=== PATIENT | female | born 1950 | race Caucasian/White ===

== ENCOUNTER 2017-03-21 11:16 | Emergency (ER) | payer MEDICARE ==
[~2017-03-21] VITALS: Ht 157.5 cm; Wt 107.4 kg
[2017-03-21] MEDS ORDERED: OMNIPAQUE 350 MG/ML, 150 ML BOTTLE ONE (12:50)
[2017-03-21] MEDS ORDERED: BENZOCAINE 20% SPRAY 0.5ML ONE (13:31)
[2017-03-21 14:09] VITALS: BP 144/77
== END 2017-03-21 14:10 | disposition home or self-care (01) ==
LOC: ED 12:34
DX: T18.198A Other foreign object in esophagus causing other injury, initial encounter (principal); X58.XXXA Exposure to other specified factors, initial encounter; Y93.89 Activity, other specified; Y92.89 Other specified places as the place of occurrence of the external cause; Y99.9 Unspecified external cause status
CPT/HCPCS: 74220; 99284; Q9967

== ENCOUNTER 2019-08-08 19:26 | Emergency (ER) | payer MEDICARE ==
[~2019-08-08] VITALS: Ht 154.9 cm; Wt 107.9 kg
--- NOTE | 2019-08-08 20:15 | NUR ---
THIS IS A 68 YO FEMALE WHO PRESENTS TO THE ER C/O "A BIG BLACK DOT FLOATING ALL AROUND MY EYE" ON RIGHT EYE. PT DENIES FLASHES OF LIGHT OR PAIN. LUZ ELENA STEPHENSON AT BEDSIDE FOR EVAL. PT ALSO STATED TO MD SHE HAS HAD INTERMITTENT CHEST PAIN WHILE LAYING DOWN X "20 TO 30 YEARS" THAT RESOLVED WITH POSITION AND COLD WATER. PT CURRENTLY DENIES ANY PAIN TODAY AT ALL. PT AWARE WE ARE WAITING FOR LAB RESULTS. AT BEDSIDE. PT ON CONT BP, CARDIAC AND O2 MONITORS. CALL LIGHT WITHIN REACH.
[2019-08-08 20:17] LABS: BASOPHILS # (AUTO) 0.01 x10^3/uL (0-0.1); BASOPHILS % (AUTO) 0 % (0-1); EOSINOPHILS % (AUTO) 0 % (1-7); LYMPHOCYTES # (AUTO) 0.79 x10^3/uL (1-3.4); LYMPHOCYTES % (AUTO) 8 % (22-44); MD NO; MEAN CORPUSCULAR HEMOGLOBIN 31.3 pg (27.0-34.8); MEAN PLATELET VOLUME 7.3 fL (7.4-10.4); MONOCYTES # (AUTO) 0.11 x10^3/uL (0.2-0.8); MONOCYTES % (AUTO) 1 % (2-9); NEUTROPHILS # (AUTO) 9.28 x10^3/uL (1.8-6.8); NEUTROPHILS % (AUTO) 91 % (42-75); PLATELET COUNT 260 x10^3/uL (130-400); RED BLOOD COUNT 4.67 x10^6/uL (3.82-5.3); RED CELL DISTRIBUTION WIDTH 16.4 % (9.6-15.2)
[2019-08-08 20:29] LABS: ALBUMIN 3.5 g/dL (3.4-5.0); ANION GAP 12 mmol/L (5-15); CALCIUM 8.9 mg/dL (8.5-10.1); CHLORIDE 109 mmol/L (98-107); CREATININE 1.07 mg/dL (0.55-1.02)
[2019-08-08 20:33] LABS: TROPONIN I < 0.015 ng/mL (0.000-0.045)
[2019-08-08 21:13] VITALS: BP 136/70
--- NOTE | 2019-08-08 21:13 | NUR ---
REPORT FROM TY INFANTE. PT RESTING IN ROOM. VSS. NO NEEDS EXPRESSED. AWAITING VAs.
--- NOTE | 2019-08-08 21:17 | NUR ---
REPORT TO TY GUEVARA WHO ASSUMED CARE OF PT.
--- NOTE | 2019-08-08 21:21 | NUR ---
VAs COMPLETED. Addendum: 08/08/19 at 2121 by [email or web address] CHART UP FOR RECHECK.
[2019-08-08 21:37] LABS: HCT (SEDRATE) 44.4 % (34.6-47.8)
== END 2019-08-08 21:50 | disposition home or self-care (01) ==
LOC: ED 21:10
DX: R07.89 Other chest pain (principal); H53.451 Other localized visual field defect, right eye; M31.6 Other giant cell arteritis; K21.9 Gastro-esophageal reflux disease without esophagitis; Z85.038 Personal history of other malignant neoplasm of large intestine
CPT/HCPCS: 36415; 71045; 80048; 82040; 84484; 85025; 85651; 93005; 99284

== ENCOUNTER 2020-12-07 12:38 | Emergency (ER) | payer MEDICARE ==
[~2020-12-07] VITALS: Ht 154.9 cm; Wt 108.0 kg
--- NOTE | 2020-12-07 12:47 | NUR ---
ABRAHAM RN: THIS IS A 70 YEAR OLD FEMALE WHO WAS BIB AMBULANCE DUE TO [facility]. PT STATES SHE MISS A STEEP AND FELL. PT C.O OF RIGHT BREAST AND RIB PAIN, AND HAS MULTIPLE SKIN TEARS ON RIGHT ARM AND RIGHT LEG. PT RECEIVED 100MCG OF FENTANYL AND ZOFRAN 4MG IV IN ROUTE BY EMS. PT STATES PAIN IS AT A 8/10 AT THIS TIME.
[2020-12-07] MEDS ORDERED: PRED5TAB PO (12:52)
[2020-12-07] MEDS ORDERED: OMEP-110 PO (12:53)
[2020-12-07] MEDS ORDERED: MORPHINE SULFATE 4 MG/ML, 1ML ONE (13:08)
[2020-12-07] MEDS ORDERED: MORPHINE SULFATE 4 MG/ML, 1ML IVPush PRN (13:30)
[2020-12-07] MEDS ORDERED: OXYcodone/APAP 5/325MG TABLET ONE (14:23)
[2020-12-07] MEDS ORDERED: IBUPROFEN 200 MG TABLET ONE (14:23)
[2020-12-07] MEDS ORDERED: IBUPROFEN 200 MG TABLET PO ONE (14:30)
[2020-12-07] MEDS ORDERED: OXYcodone/APAP 5/325MG TABLET PO ONE (14:30)
[2020-12-07 15:36] VITALS: BP 134/68
--- NOTE | 2020-12-07 15:48 | NUR ---
PT REC'VD DISCHARGE INSTRUCTIONS AND EDUCATION. PT HAD NO FURTHER QUESTIONS. PT AMBULATED TO DISCHARGE AREA, STEADY GAIT.
[2020-12-12] MEDS ORDERED: HYDR-2214 PO ×2 (13:48)
== END 2020-12-07 15:53 | disposition home or self-care (01) ==
LOC: ED 15:20
DX: S22.31XA Fracture of one rib, right side, initial encounter for closed fracture (principal); M25.511 Pain in right shoulder; X58.XXXA Exposure to other specified factors, initial encounter; Y93.89 Activity, other specified; Y92.89 Other specified places as the place of occurrence of the external cause; Y99.8 Other external cause status
CPT/HCPCS: 71101; 73000; 96372; 99284; J2270

== ENCOUNTER 2020-12-09 00:46 | Inpatient (IN) | payer MEDICARE ==
[~2020-12-09] VITALS: Ht 154.9 cm; Wt 107.4 kg
[~2020-12-09 00:46] MED LIST: OMEP-110 PO; PRED5TAB PO
--- NOTE | 2020-12-09 00:59 | NUR ---
ASSUMED CARE OF PATIENT. PATIENT BIB [facility] FOR RIGHT RIB PAIN AFTER A GLF YESTERDAY. PT REPORTS IT HURTS WORSE TO NIGHT. VS STABLE. NO ACUTE DISTRESS NOTED. PT WAS GIVEN FENTANYL IN BY EMS. PT SEEN BY DR JIMENEZ. EKG DONE. CALL LIGHT IN PLACE. WILL CONTINUE TO MONITOR.
--- NOTE | 2020-12-09 01:15 | NUR ---
LAB IN ROOM
[2020-12-09 01:29] LABS: BASOPHILS % (AUTO) 1 % (0-1); EOSINOPHILS % (AUTO) 1 % (1-7); LYMPHOCYTES % (AUTO) 17 % (22-44); MEAN CORPUSCULAR HEMOGLOBIN 31.8 pg (27.0-34.8); MEAN CORPUSCULAR HGB CONC 33.1 g/dL (32.4-35.8); MEAN PLATELET VOLUME 7.6 fL (7.4-10.4); MONOCYTES % (AUTO) 6 % (2-9); NEUTROPHILS % (AUTO) 75 % (42-75); PLATELET COUNT 268 x10^3/uL (130-400); RED BLOOD COUNT 4.41 x10^6/uL (3.82-5.3); RED CELL DISTRIBUTION WIDTH 14.1 % (9.6-15.2)
[2020-12-09] MEDS ORDERED: ONDANSETRON 2MG/ML, 2ML IVPush ONE (01:30)
[2020-12-09] MEDS ORDERED: SODIUM CHLORIDE FLUSH 10ML SYR IVF ONE (01:30)
[2020-12-09] MEDS ORDERED: OMNIPAQUE 350 MG/ML, 100ML BOTTLE ONE (01:30)
[2020-12-09] MEDS ORDERED: ONDANSETRON 2MG/ML, 2ML ONE (01:30)
[2020-12-09] MEDS ORDERED: MORPHINE SULFATE 4 MG/ML, 1ML ONE ×2 (01:30→03:28)
[2020-12-09 01:32] LABS: MD NO
[2020-12-09] MEDS: MORPHINE SULFATE 4 MG/ML, 1ML IVPush PRN ×2 (01:34→03:33)
[2020-12-09] MEDS ORDERED: vit D (01:37)
[2020-12-09] MEDS ORDERED: FLUO20CA23 PO (01:37)
[2020-12-09 01:40] LABS: INTERNATIONAL NORMALIZED RATIO 0.96 (0.93-1.1); PROTHROMBIN TIME 10.3 Seconds (9.6-11.5)
[2020-12-09 01:41] LABS: ALANINE AMINOTRANSFERASE 38 U/L (12-78); ALBUMIN 3.3 g/dL (3.4-5.0); ANION GAP 4 mmol/L (5-15); CALCIUM 8.7 mg/dL (8.5-10.1); CHLORIDE 110 mmol/L (98-107)
[2020-12-09 01:43] LABS: ALKALINE PHOSPHATASE 72 U/L (45-117); BILIRUBIN,TOTAL 0.4 mg/dL (0.2-1.0); TOTAL PROTEIN 6.7 g/dL (6.4-8.2)
--- NOTE | 2020-12-09 01:47 | NUR ---
PT CHANGED INTO A GOWN AND BED LINENS CHANGED. PT REPORTS SHE IS INCONTINENT AT BASELINE. PT GIVEN A PUREWICK. VS STABLE. AT BEDSIDE. PT MEDICATED FOR PAIN. CALL LIGHT IN PLACE. WILL CONTINUE TO MONITOR.
--- NOTE | 2020-12-09 01:52 | NUR ---
REPORT GIVEN TO TY MENEZES. PT WENT TO CT.
--- NOTE | 2020-12-09 02:25 | NUR ---
PT RETURNED FROM CT, AT BEDSIDE. PT RESTING ON GURNEY STATES THE PAIN COMES IN WAVES. PT DENIES ANY ADDTIONAL NEEDS AT THIS TIME. VSS AND WILL CONT TO MONITOR.
--- NOTE | 2020-12-09 03:54 | NUR ---
REPORT FROM CLIF CRAWFORD
[2020-12-09] MEDS ORDERED: ONDANSETRON 2MG/ML, 2ML IVPush PRN (04:00)
[2020-12-09] MEDS ORDERED: BISACODYL 10 MG SUPP PR PRN (04:00)
[2020-12-09] MEDS ORDERED: ACETAMINOPHEN 325 MG TABLET PO PRN (04:00)
[2020-12-09] MEDS ORDERED: DOCUSATE 100 MG CAPSULE PO PRN (04:00)
[2020-12-09] MEDS ORDERED: morphine SULFATE 10 MG/ML, 1ML IVPush PRN (04:00)
[2020-12-09] MEDS ORDERED: POLYETHYLENE GLYCOL 17 GM PACKET PO PRN (04:00)
[2020-12-09] MEDS ORDERED: hydrALAzine 20 MG/ML, 1ML IVPush PRN (04:00)
[2020-12-09] MEDS ORDERED: PROMETHAZINE 25 MG/ML, 1ML IM PRN (04:00)
--- NOTE | 2020-12-09 04:02 | NUR ---
Pt to be admitted to [facility], room 524. Report called to ACCOUNT DEVELOPMENT MANAGER.
[2020-12-09 04:41] LABS: FREE T4 (FREE THYROXINE) 1.01 ng/dL (0.76-1.46)
[2020-12-09 04:48] VITALS: BP 152/82
[2020-12-09] MEDS: PREDNISONE MC SCH ×3 (05:00→21:00)
[2020-12-09] MEDS: HEPARIN 5,000 UNITS/ML, 1ML SQ SCH ×3 (05:45→20:22)
[2020-12-09] MEDS: OXYcodone IR 5MG TABLET PO PRN ×3 (05:47→23:18)
[2020-12-09] MEDS ORDERED: PRED5TAB PO (05:49)
[2020-12-09 08:57] VITALS: BP 128/76
[2020-12-09] MEDS: OMEPRAZOLE 20 MG CAPSULE.DR PO SCH (09:17)
[2020-12-09] MEDS: CHOLECALCIFEROL 1,000 UNIT TABLET PO SCH (09:17)
[2020-12-09] MEDS: FLUOXETINE HCL 20 MG CAPSULE PO SCH (09:17)
[2020-12-09] MEDS: KETOROLAC 30 MG/1 ML IVPush SCH ×3 (09:17→20:22)
[2020-12-09] MEDS: LIDODERM 5% PATCH TD SCH (11:47)
[2020-12-09] MEDS: ONDANSETRON ODT 4 MG PO PRN (11:50)
[2020-12-09 12:10] VITALS: BP 141/81
[2020-12-09 20:29] VITALS: BP 157/78
[2020-12-10 00:49] VITALS: BP 120/80
[2020-12-10] MEDS: KETOROLAC 30 MG/1 ML IVPush SCH ×4 (02:24→20:01)
[2020-12-10 05:33] LABS: BASOPHILS % (AUTO) 1 % (0-1); EOSINOPHILS % (AUTO) 2 % (1-7); LYMPHOCYTES % (AUTO) 30 % (22-44); MEAN CORPUSCULAR HEMOGLOBIN 32.3 pg (27.0-34.8); MEAN CORPUSCULAR HGB CONC 33.5 g/dL (32.4-35.8); MONOCYTES % (AUTO) 8 % (2-9); NEUTROPHILS % (AUTO) 58 % (42-75); PLATELET COUNT 238 x10^3/uL (130-400); RED CELL DISTRIBUTION WIDTH 14.2 % (9.6-15.2)
[2020-12-10 05:41] LABS: ANION GAP 4 mmol/L (5-15); CALCIUM 8.5 mg/dL (8.5-10.1); CHLORIDE 107 mmol/L (98-107)
[2020-12-10 05:42] LABS: MD NO
[2020-12-10 05:47] LABS: CHOL/HDL RATIO 2.8; CHOLESTEROL, TOTAL 239 mg/dL (140-239); CREATININE 0.94 mg/dL (0.55-1.02); HDL CHOL % 36 % (28-40); HDL CHOLESTEROL (DIRECT) 86 mg/dL (40-60); LDL CHOLESTEROL,CALCULATED 124 mg/dL (54-169); LDL/HDL RATIO 1.4 (0.5-3.0); TRIGLYCERIDES 143 mg/dL (50-200); VLDL CHOLESTEROL 29 mg/dL (0-25)
[2020-12-10] MEDS: HEPARIN 5,000 UNITS/ML, 1ML SQ SCH ×3 (06:11→20:01)
[2020-12-10] MEDS: OXYcodone IR 5MG TABLET PO PRN (06:12)
[2020-12-10 07:17] VITALS: BP 127/71
[2020-12-10] MEDS: FLUOXETINE HCL 20 MG CAPSULE PO SCH (09:38)
[2020-12-10] MEDS: CHOLECALCIFEROL 1,000 UNIT TABLET PO SCH (09:38)
[2020-12-10] MEDS: OMEPRAZOLE 20 MG CAPSULE.DR PO SCH (09:38)
[2020-12-10] MEDS: HYDROcodone/APAP 5/325 TABLET PO PRN ×2 (12:52→18:28)
[2020-12-10] MEDS: LIDODERM 5% PATCH TD SCH (12:53)
[2020-12-10 13:34] VITALS: BP 115/74
[2020-12-10 20:01] VITALS: BP 148/81
[2020-12-11] MEDS: HYDROcodone/APAP 5/325 TABLET PO PRN ×5 (00:44→23:55)
[2020-12-11 00:48] VITALS: BP 149/84
[2020-12-11] MEDS: KETOROLAC 30 MG/1 ML IVPush SCH ×4 (01:36→21:29)
[2020-12-11] MEDS: HEPARIN 5,000 UNITS/ML, 1ML SQ SCH ×3 (03:06→19:29)
[2020-12-11 08:34] VITALS: BP 150/85
[2020-12-11] MEDS: OMEPRAZOLE 20 MG CAPSULE.DR PO SCH (08:59)
[2020-12-11] MEDS: ONDANSETRON ODT 4 MG PO PRN (08:59)
[2020-12-11] MEDS: CHOLECALCIFEROL 1,000 UNIT TABLET PO SCH (08:59)
[2020-12-11] MEDS: FLUOXETINE HCL 20 MG CAPSULE PO SCH (08:59)
[2020-12-11] MEDS: LIDODERM 5% PATCH TD SCH (09:00)
[2020-12-11 12:34] VITALS: BP 139/82
[2020-12-11 19:27] VITALS: BP 136/82
[2020-12-12 00:04] VITALS: BP 152/89
[2020-12-12] MEDS: KETOROLAC 30 MG/1 ML IVPush SCH ×2 (04:15→10:12)
[2020-12-12] MEDS: HEPARIN 5,000 UNITS/ML, 1ML SQ SCH ×2 (04:16→13:11)
[2020-12-12 07:14] VITALS: BP 145/82
[2020-12-12] MEDS: HYDROcodone/APAP 5/325 TABLET PO PRN ×2 (07:32→13:10)
[2020-12-12] MEDS: FLUOXETINE HCL 20 MG CAPSULE PO SCH (08:59)
[2020-12-12] MEDS: OMEPRAZOLE 20 MG CAPSULE.DR PO SCH (08:59)
[2020-12-12] MEDS: CHOLECALCIFEROL 1,000 UNIT TABLET PO SCH (09:00)
[2020-12-12] MEDS: LIDODERM 5% PATCH TD SCH (12:00)
[2020-12-12] MEDS ORDERED: HYDR-1067 PO ×2 (13:48)
[2020-12-12 13:50] VITALS: BP 143/84
[2020-12-12] MEDS ORDERED: TRAM50TA2 PO (13:56)
[2020-12-12 14:49] VITALS: BP 140/67
== END 2020-12-12 15:35 | disposition home or self-care (01) | DRG 199 ==
LOC: ED 03:10 → EDIP 03:16 → 5SO 04:32 → DCLOUNGE 12-12 15:30
PROVIDERS: ADMIT Internal Medicine; ATTEND Internal Medicine
DX: J93.9 Pneumothorax, unspecified (principal); J96.01 Acute respiratory failure with hypoxia; S22.41XA Multiple fractures of ribs, right side, initial encounter for closed fracture; Z68.42 Body mass index [BMI] 45.0-49.9, adult; J98.11 Atelectasis; K21.9 Gastro-esophageal reflux disease without esophagitis; F32.9 Major depressive disorder, single episode, unspecified; E66.01 Morbid (severe) obesity due to excess calories; W18.39XA Other fall on same level, initial encounter; Z88.0 Allergy status to penicillin; Z88.8 Allergy status to other drugs, medicaments and biological substances; Y93.89 Activity, other specified; Y92.098 Other place in other non-institutional residence as the place of occurrence of the external cause; Y99.8 Other external cause status; Z85.038 Personal history of other malignant neoplasm of large intestine; Z79.899 Other long term (current) drug therapy
CPT/HCPCS: 36415; 71045; 74177; 80048; 80053; 80061; 83036; 83735; 84100; 84439; 84443; 85025; 85610; 93005; 96374; 96375; 96376; G0378; J1644; J1885; J2405; Q0162; Q9967; J2270; J7512